=== PATIENT | female | born 1950 | race African-American/Black ===

== ENCOUNTER 2017-05-21 10:13 | Emergency (ER) | payer MEDICARE, OTHER ==
[~2017-05-21 10:13] MED LIST: 1-ME1LIQ PO; BACT800T5 PO; HYDR-2768 PO; LISI-360 PO; PYRI200T4 PO
[2017-05-21 10:16] VITALS: BP 141/99; PULSE 97; RESP 18; TEMP 98.3; O2SAT 98
[2017-05-21] MEDS ORDERED: HYDR25TA5 PO (10:34)
[2017-05-21] MEDS ORDERED: LISI10TA3 PO (10:34)
[2017-05-21] MEDS ORDERED: ASPI81TA81 (10:34)
--- NOTE | 2017-05-21 10:39 | PD ---
HPI Chief Complaint: Fall Time Seen by Provider: 10:39 Travel History International Travel<30 days: No Contact w/Intl Traveler<30days: No Traveled to known affect area: No History of Present Illness HPI 66-year-old female presents to the emergency Department with complaint of right fourth digit finger pain after falling from a chair that slipped out from underneath her while she was cleaning cabinets this morning. She reports hitting the back of her head and denies loss of consciousness. Denies headache or pain to the back of the head at this time. Denies neck pain or back pain. Denies chest pain, shortness of breath, abdominal pain, nausea, vomiting. Denies confusion, disorientation, change in mentation. Denies focal deficits or weakness. Denies slurred speech. Denies paresthesias, loss of sensation, decreased range of motion, decreased strength toxoids. Denies extremity pain. Denies anticoagulants. Reports taking aspirin occasionally. Has not taken any medications or drainage from her symptoms prior to arrival. Allergies to ampicillin. History of hypertension and took her blood pressure medications this morning. Has no other medical complaints. No other modifying factors or associated signs and symptoms. PFSH Past Medical History Arthritis: Yes Anxiety: Yes Depression: Yes Cardiovascular Problems: Yes (HTN) Diminished Hearing: No GERD: Yes Hypertension: Yes Psychiatric: Yes (VISUAL HALLUCINATIONS) Immunizations Current: Yes Menopausal: Yes Tubal Ligation: Yes Past Surgical History Gynecologic Surgery: Yes (HYSTERECTOMY ) Hysterectomy: Yes Social History Alcohol Use: Yes Tobacco Use: Yes (1 1/2 PER WEEK) Substance Use: No Allergies-Medications (Allergen,Severity, Reaction): Coded Allergies: Ampicillin (Verified Allergy, Severe, Edema, 05/25/16) Reported Meds & Prescriptions Reported Meds & Active Scripts Active Reported Lisinopril 10 Mg Tab 70 Mg PO DAILY Aspir-81 (Aspirin) 81 Mg Tabdr Hydrochlorothiazide 25 Mg Tab 25 Mg PO DAILY Physical Exam Narrative GENERAL: Well-nourished, well-developed female patient, in no acute distress SKIN: Warm and dry. HEAD: Atraumatic. Normocephalic. No facial or scalp abrasions or lacerations noted. No palpable lump or tenderness elicited on exam to the posterior scalp. No facial droop noted. Tongue midline. EYES: Pupils equal and round at 3 mm with brisk reaction. No scleral icterus. No injection or drainage. No raccoon eyes. ENT: Mucosa pink and moist. No erythema or exudates. No uvular edema. No uvular , palatal, or tonsillar deviation. Airway patent. Nares without nasal blood, purulent drainage or septal hematoma. No rhinorrhea. EARS: Bilateral pinnae and external canals appear within normal limits. Bilateral tympanic membranes without erythema, dullness, hemotympanum or perforation. No otorrhea. No lopez signs. NECK: Moving freely. Trachea midline. No lymphadenopathy. Active rotation of the neck greater than 45 left and right. No midline point tenderness on palpation of the cervical spine. No obvious deformities. CHEST: No retractions or use of accessory muscles. CARDIOVASCULAR: Regular rate and rhythm. No murmur appreciated. RESPIRATORY: No accessory muscle use. Clear to auscultation. Breath sounds equal bilaterally. GASTROINTESTINAL: Abdomen soft, non-tender, nondistended. Hepatic and splenic margins not palpable. Bowel sounds are active 4 quadrants. MUSCULOSKELETAL: Right fourth finger without erythema, edema, ecchymosis; with tenderness on palpation; with full range of motion and good opposition; No obvious deformity; sensory intact. No obvious deformities. No clubbing. No cyanosis. No edema. BACK: No midline Point tenderness on palpation of the lumbar or thoracic spine. No obvious deformities. Patient sitting up in bed at 90. NEUROLOGICAL: Awake and alert. Oriented 4. No obvious cranial nerve deficits. Motor grossly within normal limits. Normal speech. No midline drift. No ataxia. Moves all extremities. 5/5 strength to all extremities. Sensory intact. PSYCHIATRIC: Appropriate mood and affect; insight and judgment normal. Data Data Last Documented VS Vital Signs Date Time Temp Pulse Resp B/P Pulse Ox O2 Delivery O2 Flow Rate FiO2 05/21/17 10:16 98.3 97 18 141/99 98 Orders Finger ([id number]) (05/21/17 ) Ibuprofen (Motrin) (05/21/17 10:45) MDM Medical Decision Making Medical Screen Exam Complete: Yes Emergency Medical Condition: Yes Medical Record Reviewed: Yes Differential Diagnosis Head injury, finger sprain, fall Narrative Course 56-year-old female with complaint of right fourth finger pain after falling from a chair that slipped out from underneath her. The patient admits to hitting their head, but denies loss of consciousness. Denies anticoagulants. Neuro exam is unremarkable. Denies nausea, vomiting. On physical exam the patient is without raccoon eyes, lopez signs, rhinorrhea, or hemotympanum. I do not suspect open or depressed skull fracture, and the patient has no signs of basilar skull fracture. Malag[place] CT Head Injury Rule suggests a head CT is not necessary for this patient and clears the patient for head injury without imaging. Denies neck pain or back pain. I discussed the patient with my attending physician, Dr. Torres, and he agrees CT head is not necessary at this time. The patient would like her finger x-rayed. I will x-ray the finger per patient request. I offered the patient Tylenol for pain and she declined; patient requested Ibuprofen. 1216: Right fourth finger x-ray with no acute findings. Instructed patient to follow up with primary care provider. Patient verbalizes understanding and agreement with treatment plan. Patient is medically cleared and stable for discharge. Discussed reasons to return to the emergency department. Patient agrees with treatment plan. The patients vital signs are stable and the patient is stable for outpatient follow-up and treatment. Patient discharged home, stable and in no acute distress. Diagnosis Primary Impression: Fall from chair Qualified Code: W07.XXXA - Fall from chair, initial encounter Additional Impressions: Head injury Qualified Code: S09.90XA - Head injury, initial encounter Finger injury Qualified Code: S69.91XA - Finger injury, right, initial encounter Referrals: Primary Care Physician Patient Instructions: Fall Prevention for Older Adults (ED), Finger Sprain (ED) , General Instructions, Head Injury (ED) Additional Instructions: Tylenol or ibuprofen instructed and as needed for pain and inflammation Ice to affected finger as needed for pain and inflammation Follow-up with primary care provider Return to the emergency department immediately with worsening symptoms, particularly as discussed Med/Other Pt SpecificInfo: No Change to Meds, No Meds Exist/No RX given Disposition: 01 DISCHARGE HOME Condition: Stable Isabel Erwin May 21, 2017 10:39
[2017-05-21] MEDS ORDERED: IBUPROFEN 600 MG TAB PO ONE (10:45)
--- NOTE | 2017-05-21 11:20 | RADRPT ---
EXAM DATE/TIME: 05/21/2017 11:04 [facility] COMPARISON: No previous studies available for comparison. INDICATIONS : Pain from fall. MEDICAL HISTORY : None. SURGICAL HISTORY : None. ENCOUNTER: Initial ACUITY: 1 day PAIN SCORE: 4/10 LOCATION: Right proximal fourth digit. FINDINGS: Examination of the fourth digit of the right hand demonstrates no evidence of fracture or dislocation . No radiopaque foreign bodies are seen. The soft tissues are intact. CONCLUSION: Unremarkable examination of the right fourth finger. Shantanu Mcdaniel MD on May 21, 2017 at 11:18 Board Certified Radiologist. This report was verified electronically.
== END 2017-05-21 12:29 | disposition home or self-care (01) ==
LOC: NEPD 10:13
DX: S09.90XA Unspecified injury of head, initial encounter (principal); S69.91XA Unspecified injury of right wrist, hand and finger(s), initial encounter; I10 Essential (primary) hypertension; F41.9 Anxiety disorder, unspecified; F32.9 Major depressive disorder, single episode, unspecified; K21.9 Gastro-esophageal reflux disease without esophagitis; M13.80 Other specified arthritis, unspecified site; W08.XXXA Fall from other furniture, initial encounter; Z79.899 Other long term (current) drug therapy
CPT/HCPCS: 73140; 99283

== ENCOUNTER 2017-07-11 10:27 | Emergency (ER) | payer MEDICARE, OTHER ==
[~2017-07-11 10:27] MED LIST changes: -1-ME1LIQ PO; +ASPI81TA81; -BACT800T5 PO; -HYDR-2768 PO; +HYDR25TA5 PO; -LISI-360 PO; +LISI10TA3 PO; -PYRI200T4 PO
[2017-07-11 10:29] VITALS: BP 216/110; PULSE 80; RESP 17; TEMP 97.8; O2SAT 98
[2017-07-11 11:10] VITALS: BP 195/103
--- NOTE | 2017-07-11 11:18 | PD ---
HPI Chief Complaint: Complaint Time Seen by Provider: 11:09 Travel History International Travel<30 days: No Contact w/Intl Traveler<30days: No Traveled to known affect area: No History of Present Illness HPI 66-year-old female presents to emergency department for evaluation of urinary frequency, urgency, and burning over the last week. She also stepped on a nail 2 days ago and would like a tetanus vaccination. She states she removed it herself. Reports moderate pain on the plantar surface of her right medial foot. Denies fever or chills. Pt has not taken her antihypertensive medication because she is out and is looking to switch PCPs. At this time she has no other symptoms to report. PFSH Past Medical History Arthritis: Yes Anxiety: Yes Depression: Yes Cardiovascular Problems: Yes (HTN) Diminished Hearing: No GERD: Yes Hypertension: Yes Psychiatric: Yes (VISUAL HALLUCINATIONS) Immunizations Current: Yes Menopausal: Yes Tubal Ligation: Yes Past Surgical History Gynecologic Surgery: Yes (HYSTERECTOMY ) Hysterectomy: Yes Social History Alcohol Use: Yes ("SOMETIMES") Tobacco Use: Yes ("SOMETIMES") Substance Use: No Allergies-Medications (Allergen,Severity, Reaction): Coded Allergies: ampicillin (Unverified Allergy, Severe, Edema, 06/27/17) Reported Meds & Prescriptions Reported Meds & Active Scripts Active Lisinopril 40 Mg Tab 40 Mg PO DAILY Cipro (Ciprofloxacin HCl) 500 Mg Tab 500 Mg PO BID 10 Days Reported Lisinopril 10 Mg Tab 70 Mg PO DAILY Aspir-81 (Aspirin) 81 Mg Tabdr Hydrochlorothiazide 25 Mg Tab 25 Mg PO DAILY Review of Systems Except as stated in HPI: all other systems reviewed are Neg Physical Exam Narrative GENERAL: Obese female patient ambulatory and in no acute distress SKIN: Warm and dry. 3mm scabbed lesion on plantar surface of the medial aspect of the right foot. Mild erythema surrounding it. No induration or fluctuation. No drainage. HEAD: Atraumatic. Normocephalic. EYES: Pupils equal and round. No scleral icterus. No injection or drainage. ENT: No nasal bleeding or discharge. Mucous membranes pink and moist. NECK: Trachea midline. No JVD. CARDIOVASCULAR: Regular rate and rhythm. RESPIRATORY: No accessory muscle use. Clear to auscultation. Breath sounds equal bilaterally. GASTROINTESTINAL: Abdomen soft, non-tender, nondistended. Hepatic and splenic margins not palpable. MUSCULOSKELETAL: Extremities without clubbing, cyanosis, or edema. No obvious deformities. NEUROLOGICAL: Awake and alert. No obvious cranial nerve deficits. Motor grossly within normal limits. Five out of 5 muscle strength in the arms and legs. Normal speech. Data Data Last Documented VS Vital Signs Date Time Temp Pulse Resp B/P (MAP) Pulse Ox O2 Delivery O2 Flow Rate FiO2 07/11/17 13:02 87 18 184/90 (121) 97 07/11/17 12:35 Room Air 07/11/17 10:29 97.8 Orders Orders Lisinopril (Prinivil) (07/11/17 11:26) Urinalysis - C+S If Indicated (07/11/17 11:26) Basic Metabolic Panel (Bmp) (07/11/17 11:29) Tetanus/Diphtheria Tox Adult (Tetanus/Di (07/11/17 11:30) Foot, Limited (2vws) (07/11/17 ) Urine Culture (07/11/17 11:29) Labs Laboratory Tests Test 07/11/17 10:34 07/11/17 11:29 Blood Urea Nitrogen 11 MG/DL Creatinine 0.80 MG/DL Random Glucose 90 MG/DL Calcium Level 9.2 MG/DL Sodium Level 141 MEQ/L Potassium Level 3.6 MEQ/L Chloride Level 107 MEQ/L Carbon Dioxide Level 27.5 MEQ/L Anion Gap 7 MEQ/L Estimat Glomerular Filtration Rate 87 ML/MIN Urine Color YELLOW Urine Turbidity HAZY Urine pH 6.5 Urine Specific Kersey 1.011 Urine Protein 30 mg/dL Urine Glucose (UA) NEG mg/dL Urine Ketones NEG mg/dL Urine Occult Blood SMALL Urine Nitrite POS Urine Bilirubin NEG Urine Urobilinogen LESS THAN 2.0 MG/DL Urine Leukocyte Esterase MOD Urine RBC 4 /hpf Urine WBC 29 /hpf Urine Squamous Epithelial Cells 1 /hpf Urine Bacteria MANY /hpf Urine Mucus FEW /lpf Microscopic Urinalysis Comment CULTURE INDICATED MDM Medical Decision Making Medical Screen Exam Complete: Yes Emergency Medical Condition: Yes Medical Record Reviewed: Yes Differential Diagnosis cystitis vs pyelonephritis vs vaginitis cellulitis vs puncture wound vs foreign body Narrative Course 66 year old female presents to the ED for evaluation. Pt appears without distress. She does have a puncture wound on the plantar surface of the left foot that appears to be well healing. She is updated on her tetanus vaccination and will be started on oral antibiotics empirically. Laboratory Tests Test 07/11/17 10:34 07/11/17 11:29 Blood Urea Nitrogen 11 MG/DL Creatinine 0.80 MG/DL Random Glucose 90 MG/DL Calcium Level 9.2 MG/DL Sodium Level 141 MEQ/L Potassium Level 3.6 MEQ/L Chloride Level 107 MEQ/L Carbon Dioxide Level 27.5 MEQ/L Anion Gap 7 MEQ/L Estimat Glomerular Filtration Rate 87 ML/MIN Urine Color YELLOW Urine Turbidity HAZY Urine pH 6.5 Urine Specific Kersey 1.011 Urine Protein 30 mg/dL Urine Glucose (UA) NEG mg/dL Urine Ketones NEG mg/dL Urine Occult Blood SMALL Urine Nitrite POS Urine Bilirubin NEG Urine Urobilinogen LESS THAN 2.0 MG/DL Urine Leukocyte Esterase MOD Urine RBC 4 /hpf Urine WBC 29 /hpf Urine Squamous Epithelial Cells 1 /hpf Urine Bacteria MANY /hpf Urine Mucus FEW /lpf Microscopic Urinalysis Comment CULTURE INDICATED Pt will be started on CIPRO which will also address her UTI. She is counseled on care and dispositioned home at this time. Diagnosis Primary Impression: UTI (urinary tract infection) Qualified Codes: N39.0 - Urinary tract infection, site not specified Additional Impressions: Right foot injury Qualified Codes: S99.921A - Unspecified injury of right foot, initial encounter Puncture wound of skin from metal nail Referrals: [facility] Primary Care Physician Patient Instructions: Chronic Hypertension (ED), General Instructions, Puncture Wound (ED), Urinary Tract Infection in Women (DC) Additional Instructions: It is important that you establish care with a primary care provider Return immediately to the emergency department with any acute worsening of symptoms Med/Other Pt SpecificInfo: Prescription(s) given Scripts Lisinopril (Lisinopril) 40 Mg Tab 40 MG PO DAILY for Blood Pressure Management, #30 TAB 0 Refills Prov: Deyanira Denis 07/11/17 Ciprofloxacin (Cipro) 500 Mg Tab 500 MG PO BID for Infection for 10 Days, TAB 0 Refills Prov: Deyanira Denis 07/11/17 Disposition: 01 DISCHARGE HOME Condition: Stable Deyanira Denis Jul 11, 2017 11:17
[2017-07-11] MEDS ORDERED: LISINOPRIL 20 MG TAB PO STA (11:26)
[2017-07-11] MEDS ORDERED: TETANUS/DIPHTHERIA TOXOID ADULT 0.5 ML VIAL IM ONE (11:30)
[2017-07-11 11:53] LABS: BACTERIA, URINE MANY /hpf; BLOOD, URINE SMALL (NEG); COMMENT (UR) CULTURE INDICATED; CULTURE IF INDICATED CULTURE INDICATED; GLUCOSE,URINE NEG (NEG); KETONE, URINE NEG (NEG); MUCUS URINE FEW /lpf (OCC); NITRITE,URINE POS (NEG); PH, URINE 6.5 (5.0-8.5); SQUAMOUS EPITHELIAL CELL URINE 1 /hpf (0-5); URINE COLOR YELLOW (YELLW/STRAW)
[2017-07-11 11:59] LABS: BICARBONATE 27.5 MEQ/L (21.0-32.0); POTASSIUM 3.6 MEQ/L (3.5-5.1)
--- NOTE | 2017-07-11 12:11 | RADRPT ---
EXAM DATE/TIME: 07/11/2017 11:43 [facility] COMPARISON: FOOT RIGHT COMPLETE ([id number]), September 21, 2015, 10:10. INDICATIONS : Anterior foot pain for a few days with no known injury. MEDICAL HISTORY : None. SURGICAL HISTORY : None. ENCOUNTER: Initial ACUITY: 3 days PAIN SCORE: 4/10 LOCATION: Right anterior foot. FINDINGS: Two view examination of the right foot demonstrates no soft tissue swelling, dislocation, or fracture . The calcaneus is intact. Bony mineralization is normal. Calcaneal spur at the insertion of planta r aponeurosis. CONCLUSION: Calcaneal spur. Otherwise negative Harjeet Shields MD on July 11, 2017 at 12:08 Board Certified Radiologist. This report was verified electronically.
[2017-07-11 12:35] VITALS: BP 193/93; PULSE 87; RESP 20; O2SAT 97
[2017-07-11] MEDS ORDERED: CIPR-9 PO (12:54)
[2017-07-11] MEDS ORDERED: LISI40TA PO (12:54)
[2017-07-11 13:02] VITALS: BP 184/90
== END 2017-07-11 13:14 | disposition home or self-care (01) ==
LOC: NEPD 10:27
DX: N39.0 Urinary tract infection, site not specified (principal); B96.20 Unspecified Escherichia coli [E. coli] as the cause of diseases classified elsewhere; S91.332A Puncture wound without foreign body, left foot, initial encounter; M77.31 Calcaneal spur, right foot; M13.80 Other specified arthritis, unspecified site; I10 Essential (primary) hypertension; K21.9 Gastro-esophageal reflux disease without esophagitis; W22.8XXA Striking against or struck by other objects, initial encounter; Z23 Encounter for immunization
CPT/HCPCS: 73620; 80048; 81001; 87077; 87086; 87186; 90714; 96372

== ENCOUNTER 2017-07-18 03:16 | Observation (INO) | payer MEDICARE, OTHER ==
[~2017-07-18] VITALS: Ht 167.6 cm; Wt 110.0 kg
[2017-07-18] VITALS (8 sets, daily range): BP systolic 84–158; BP diastolic 52–81; PULSE 68–85; RESP 16–20; TEMP 97.9–98.1; O2SAT 94–98
[~2017-07-18 03:16] MED LIST changes: +CIPR-9 PO; +LISI40TA PO
[2017-07-18] MEDS ORDERED: IOHEXOL 350 MG/ML 10 ML VIAL (for RAD DIAG) IVCONTRAST ONE (03:17)
[2017-07-18] MEDS ORDERED: ONDANSETRON HCL 4 MG/2 ML VIAL IV PUSH ONE (04:30)
[2017-07-18] MEDS ORDERED: SODIUM CHLORID 0.9% 500 ML INJ 500 ML IV ONE (04:30)
[2017-07-18 04:32] LABS: AUTOMATED NEUTROPHIL # 6.3 TH/MM3 (1.8-7.7); BASOPHIL % 0.5 % (0.0-2.0); EOSINOPHIL # 0.2 TH/MM3 (0-0.4); EOSINOPHIL % 2.1 % (0.0-4.0); HEMATOCRIT 40.8 % (35.0-46.0); HEMO FLAGS DIFF FINAL; LYMPH % 11.1 % (9.0-44.0); LYMPHOCYTE # 0.9 TH/MM3 (1.0-4.8); MEAN CELL VOLUME 83.5 FL (80.0-100.0); MEAN CORPUSCULAR HEMOGLOBIN 28.1 PG (27.0-34.0); MEAN CORPUSCULAR HGB CONC 33.6 % (32.0-36.0); MONO % 5.1 % (0.0-8.0); NEUT % 81.2 % (16.0-70.0); PLATELET COUNT 219 TH/MM3 (150-450); RED BLOOD COUNT 4.88 MIL/MM3 (4.00-5.30); RED CELL DISTRIBUTION WIDTH 15.5 % (11.6-17.2); WHITE BLOOD COUNT 7.7 TH/MM3 (4.0-11.0)
[2017-07-18 04:39] LABS: APTT (PATIENT) 27.3 SEC (24.3-30.1); INTERNATIONAL NORMALIZED RATIO 0.9 RATIO; PROTHROMBIN TIME - PATIENT 10.4 SEC (9.8-11.6)
--- NOTE | 2017-07-18 04:50 | PD ---
HPI Chief Complaint: Abdominal Pain Time Seen by Provider: 03:46 Travel History International Travel<30 days: No Contact w/Intl Traveler<30days: No Traveled to known affect area: No History of Present Illness HPI The patient is a 67 year old female who presents to the [facility] emergency department with a history of abdominal pain that she reports began around 10 PM tonight. She reports the pain is coming and going and then the center of her abdomen. She reports that the pain is unlike anything she's ever had previously. She reports that the ureter the pain as a cramping/labor sensation. The patient reports that the only surgeries that she's had on her abdomen previously are hysterectomy and a bilateral tubal ligation. She reports that she's had nausea and vomiting 3 prior to arrival. She denies having any diarrhea. Her last bowel movement was yesterday. She denies having any known fevers or chills. She denies having any dysuria, urinary frequency, urinary urgency associated with this. Otherwise on review of systems, she denies any cough, congestion, neck pain, chest pain, shortness of breath, or neurologic symptoms. [facility] Past Medical History Narrative Medical The patient's past medical history is significant for recently being diagnosed with a urinary tract infection, started on antibiotic of Cipro on July 11, however she reports that she was called and told to switch the antibiotic. She started the new antibiotic 2 days ago. The patient has a history of hypertension, anxiety disorder, depression, acid reflux, arthritis, history of psychiatric disorder. Arthritis: Yes Anxiety: Yes Depression: Yes Cardiovascular Problems: Yes (HTN) Diminished Hearing: No GERD: Yes Hypertension: Yes Psychiatric: Yes (VISUAL HALLUCINATIONS) Immunizations Current: Yes Tetanus Vaccination: < 5 Years Influenza Vaccination: Yes Menopausal: Yes Tubal Ligation: Yes Past Surgical History Narrative Surgical The patient's past surgical history is significant for bilateral tubal ligation , hysterectomy. Gynecologic Surgery: Yes (HYSTERECTOMY ) Hysterectomy: Yes Social History Alcohol Use: Yes ("SOMETIMES") Tobacco Use: Yes ("SOMETIMES") Substance Use: No Allergies-Medications (Allergen,Severity, Reaction): Coded Allergies: ampicillin (Unverified Allergy, Severe, Edema, 07/18/17) Reported Meds & Prescriptions Reported Meds & Active Scripts Active Cipro (Ciprofloxacin HCl) 500 Mg Tab 500 Mg PO BID 10 Days Reported Lisinopril 10 Mg Tab 70 Mg PO DAILY Aspir-81 (Aspirin) 81 Mg Tabdr Hydrochlorothiazide 25 Mg Tab 25 Mg PO DAILY Review of Systems Except as stated in HPI: all other systems reviewed are Neg General / Constitutional: No: Fever Eyes: No: Visual changes HENT: No: Headaches Cardiovascular: No: Chest Pain or Discomfort Respiratory: No: Shortness of Breath Gastrointestinal: Positive: Nausea, Vomiting, Abdominal Pain, No: Hematemesis, Hematochezia, Constipation, Changes in Bowel Habits, Indigestion, Loss of Appetite Genitourinary: No: Dysuria Musculoskeletal: No: Pain Skin: No Rash Neurologic: No: Weakness, Focal Abnormalities, Change in Mentation, Slurred Speech, Sensory Disturbance Psychiatric: No: Depression Endocrine: No: Polydipsia Hematologic/Lymphatic: No: Easy Bruising Physical Exam Narrative General: The patient is a well-developed well-nourished female who is uncomfortable appearing on examination, intermittently writhing around the bed and moaning. The patient's initial blood pressure was a systolic of 106, however patient's blood pressure quickly dropped down to 84/52. Given the patient's recent history of UTI there was a concern for sepsis. Head and Neck exam: Head is normocephalic atraumatic. Eyes: EOMI, pupils are equal round and reactive to light. Nose: Midline septum with pink mucous membranes Mouth: Dentition unremarkable. Moist mucus membranes. Posterior oropharynx is not erythematous. No tonsillar hypertrophy. Uvula midline. Airway patent. Neck: No palpable lymphadenopathy. No nuchal rigidity. No thyromegaly. Cardiovascular: Regular rate and rhythm without murmurs, gallops, or rubs. Lungs: Clear to auscultation bilaterally. No wheezes, rhonchi, or rales. Abdomen: Soft, with reported tenderness on deep palpation that is periumbilical, no hernia is palpated, no other tenderness on palpation of the other quadrants. No guarding, rebound, or rigidity. Normal bowel sounds are audible. No tenderness on palpation of McBurney's point. Negative Caba's sign. Extremities: No clubbing, cyanosis, or edema. 2+ pulses in all 4 extremities. No calf tenderness on palpation. Back: No costovertebral angle tenderness to palpation. Neurologic Exam: Grossly nonfocal. Skin Exam: No rash noted. Intact skin that is warm and dry. Data Data Last Documented VS Vital Signs Date Time Temp Pulse Resp B/P (MAP) Pulse Ox O2 Delivery O2 Flow Rate FiO2 07/18/17 06:03 18 07/18/17 05:27 81 117/63 (81) 97 Nasal Cannula 2.00 07/18/17 03:40 97.9 Orders Orders Electrocardiogram (07/18/17 04:05) Complete Blood Count With Diff (07/18/17 04:05) Comprehensive Metabolic Panel (07/18/17 04:05) Creatine Kinase (Cpk) (07/18/17 04:05) Ckmb (Isoenzyme) Profile (07/18/17 04:05) Troponin I (07/18/17 04:05) Prothrombin Time / Inr (Pt) (07/18/17 04:05) Act Partial Throm Time (Ptt) (07/18/17 04:05) C-Reactive Protein (Crp) (07/18/17 04:05) Lipase (07/18/17 04:05) Urinalysis - C+S If Indicated (07/18/17 04:05) Magnesium (Mg) (07/18/17 04:05) Chest, Single Ap (07/18/17 04:05) Iv Access Insert/Monitor (07/18/17 04:05) Ecg Monitoring (07/18/17 04:05) Oximetry (07/18/17 04:05) Lactic Acid (07/18/17 04:05) Sodium Chlorid 0.9% 500 Ml Inj (Ns 500 M (07/18/17 04:30) Ondansetron Inj (Zofran Inj) (07/18/17 04:30) Blood Culture (07/18/17 04:41) Ketorolac Inj (Toradol Inj) (07/18/17 05:00) Ct Abd/Pel W Iv Contrast(Rout) (07/18/17 04:50) Cath For Specimen (07/18/17 04:50) CKMB (07/18/17 04:15) CKMB% (07/18/17 04:15) Iohexol 350 Inj (Omnipaque 350 Inj) (07/18/17 03:17) Sodium Chlor 0.9% 1000 Ml Inj (Ns 1000 M (07/18/17 05:45) Vancomycin Inj (Vancomycin Inj) (07/18/17 05:43) Aztreonam Inj (Azactam Inj) (07/18/17 05:43) Metronidazole 500 Mg Inj (Flagyl 500 Mg (07/18/17 05:43) Place In Observation (07/18/17 ) Vital Signs (Adult) Q4H (07/18/17 06:14) Activity Oob Ad Ivonne (07/18/17 06:14) Warehouse Shift Supervisor / Telemetry .CONTINUOUS (07/18/17 06:14) Intake + Output KATHY.QSHIFT (07/18/17 06:14) Diet Heart Healthy (07/18/17 Breakfast) Sodium Chlor 0.9% 1000 Ml Inj (Ns 1000 M (07/18/17 06:14) Sodium Chloride 0.9% Flush (Ns Flush) (07/18/17 06:15) Sodium Chloride 0.9% Flush (Ns Flush) (07/18/17 09:00) Basic Metabolic Panel (Bmp) (07/19/17 06:00) Complete Blood Count With Diff (07/19/17 06:00) Pt Request For Service (07/18/17 06:14) Heparin Inj (Heparin Inj) (07/18/17 08:00) Scd Bilateral/Knee High KATHY.BID (07/18/17 06:14) Naloxone Inj (Narcan Inj) (07/18/17 06:15) Docusate Sodium-Senna (Kylee-Colace) (07/18/17 09:00) Magnesium Hydroxide Liq (Milk Of Magnesi (07/18/17 06:15) Sennosides (Senokot) (07/18/17 06:15) Bisacodyl Supp (Dulcolax Supp) (07/18/17 06:15) Lactulose Liq (Lactulose Liq) (07/18/17 06:15) Vancomycin Consult Pharmacy (Vancomycin (07/18/17 06:30) Vancomycin Inj (Vancomycin Inj) (07/18/17 06:30) Admit Order (Ed Use Only) (07/18/17 06:16) Labs Laboratory Tests Test 07/18/17 04:15 07/18/17 05:45 White Blood Count 7.7 TH/MM3 Red Blood Count 4.88 MIL/MM3 Hemoglobin 13.7 GM/DL Hematocrit 40.8 % Mean Corpuscular Volume 83.5 FL Mean Corpuscular Hemoglobin 28.1 PG Mean Corpuscular Hemoglobin Concent 33.6 % Red Cell Distribution Width 15.5 % Platelet Count 219 TH/MM3 Mean Platelet Volume 9.2 FL Neutrophils (%) (Auto) 81.2 % Lymphocytes (%) (Auto) 11.1 % Monocytes (%) (Auto) 5.1 % Eosinophils (%) (Auto) 2.1 % Basophils (%) (Auto) 0.5 % Neutrophils # (Auto) 6.3 TH/MM3 Lymphocytes # (Auto) 0.9 TH/MM3 Monocytes # (Auto) 0.4 TH/MM3 Eosinophils # (Auto) 0.2 TH/MM3 Basophils # (Auto) 0.0 TH/MM3 CBC Comment DIFF FINAL Differential Comment Prothrombin Time 10.4 SEC Prothromb Time International Ratio 0.9 RATIO Activated Partial Thromboplast Time 27.3 SEC Blood Urea Nitrogen 20 MG/DL Creatinine 1.13 MG/DL Random Glucose 156 MG/DL Total Protein 8.1 GM/DL Albumin 3.6 GM/DL Calcium Level 9.0 MG/DL Magnesium Level 1.8 MG/DL Alkaline Phosphatase 61 U/L Aspartate Amino Transf (AST/SGOT) 9 U/L Alanine Aminotransferase (ALT/SGPT) 20 U/L Total Bilirubin 0.6 MG/DL Sodium Level 136 MEQ/L Potassium Level 3.3 MEQ/L Chloride Level 97 MEQ/L Carbon Dioxide Level 32.5 MEQ/L Anion Gap 7 MEQ/L Estimat Glomerular Filtration Rate 58 ML/MIN Lactic Acid Level 1.4 mmol/L Total Creatine Kinase 164 U/L Creatine Kinase MB 0.8 NG/ML Troponin I LESS THAN 0.02 NG/ML C-Reactive Protein 6.60 MG/DL Lipase 141 U/L Urine Color YELLOW Urine Turbidity HAZY Urine pH 6.5 Urine Specific [place] 1.043 Urine Protein TRACE mg/dL Urine Glucose (UA) NEG mg/dL Urine Ketones NEG mg/dL Urine Occult Blood NEG Urine Nitrite NEG Urine Bilirubin NEG Urine Urobilinogen LESS THAN 2.0 MG/DL Urine Leukocyte Esterase NEG Urine RBC 3 /hpf Urine WBC 3 /hpf Urine Squamous Epithelial Cells 4 /hpf Urine Bacteria RARE /hpf Urine Mucus FEW /lpf Microscopic Urinalysis Comment CULT NOT INDICATED MDM Medical Decision Making Medical Screen Exam Complete: Yes Emergency Medical Condition: Yes Medical Record Reviewed: Yes Interpretation(s) Last Impressions Abdomen/Pelvis CT 07/18/17449 Signed Impressions: Service Date/Time: Tuesday, July 18, 2017 05:05 - CONCLUSION: 1. Trace ascites with free fluid along the inferior margins of the liver and spleen extending to the pelvis. 2. Nonspecific appearance of nondistended small bowel loops particularly in the left abdomen with questionable small bowel wall thickening and mesenteric stranding. The mesenteric changes may simply reflect mesenteric edema in this patient with ascites. Differential considerations include normal variant versus enteritis versus less likely inflammatory bowel disease. CT enterography may be performed for further evaluation if there is continued strong clinical concern. 3. Normal appendix. 4. Mild sigmoid diverticulosis. Trey Smith MD Chest X-Ray 07/18/175 Signed Impressions: Service Date/Time: Tuesday, July 18, 2017 04:56 - CONCLUSION: 1. No acute cardiopulmonary disease. Trey Smith MD Differential Diagnosis Sepsis related to a urinary tract infection, versus dehydration, versus is very perforated peptic ulcer, versus perforated bowel Narrative Course During the course of the patients emergency department visit, the patients history, examination, and differential diagnosis were reviewed with the patient. The patient had IV access obtained and blood work sent for analysis. The patient was placed on a secured entrance monitor with oximetry and blood pressure monitoring. Blood cultures 2 were done, lactic acid was sent. A CT scan of the abdomen and pelvis was ordered. The patient was initially provided normal saline a 500 mL bolus 1, Zofran 4 mg IV. The patient was started on broad-spectrum antibiotics to include Azactam, vancomycin, and Flagyl. The patients laboratory studies were reviewed and remarkable for a white count of 7.7, hemoglobin 13.7, platelets 219, neutrophils 81.2. CMP is remarkable for potassium of 3.3, CO2 32.5, BUN 20, creatinine 1.13, glucose 156, AST 9, CPK 164, troponin I less than 0.02, C-reactive protein is 6.6, lipase 141, lactic acid 1.4. PT PTT within normal limits. Urinalysis shows concentrated urine, rare bacteria. Radiology studies were reviewed and remarkable for a chest x-ray that shows no acute cardiopulmonary disease, CT scan of the abdomen and pelvis shows trace ascites with free fluid along the inferior margins of the liver and spleen extending to the pelvis, nonspecific appearance of nondistended small bowel loops particularly in the left abdomen with questionable small bowel wall thickening and mesenteric stranding. The mesenteric changes may simply be related to mesenteric edema and the patient with ascites. Differential diagnosis includes normal variant, versus enteritis, versus inflammatory bowel disease. The patient has a normal-appearing appendix, mild sigmoid diverticulosis. Given the patient's episode of hypotension and severe abdominal pain the patient will be admitted to the hospital for continued IV antibiotics, IV fluid bolus. If the patient does develop diarrhea, C. difficile toxin will be sent for analysis due to the patient being on antibiotic as this should be ruled out. The patients results were discussed with the patient, including the plan of care. I explained that further testing and/ or monitoring is indicated based on the patients history, examination, and/ or laboratory findings. Therefore, I recommended admission for additional evaluation. The patient expressed understanding and was agreeable with this plan. The patient was admitted to the hospital in stable condition and sent to a [facility]. Sepsis Criteria Severe Sepsis (+one): Hypotension Physician Communication Physician Communication The patient's case was discussed with Dr. Cohen who did agree to admit the patient for further evaluation and treatment at this time. Diagnosis Primary Impression: Abdominal pain Qualified Codes: R10.9 - Unspecified abdominal pain Additional Impressions: Hypotension, unspecified Qualified Codes: I95.9 - Hypotension, unspecified Urinary tract infection Qualified Codes: N39.0 - Urinary tract infection, site not specified Admitting Information Admitting Physician Requests: Yocasta Borrego MD Jul 18, 2017 04:50
[2017-07-18 04:52] LABS: ANION GAP 7 MEQ/L (5-15); AST (GOT) 9 U/L (15-37); BICARBONATE 32.5 MEQ/L (21.0-32.0); BLOOD UREA NITROGEN 20 MG/DL (7-18); CHLORIDE 97 MEQ/L (98-107); GLOMERULAR FILTRATION RATE 58 ML/MIN (>89); MAGNESIUM 1.8 MG/DL (1.5-2.5); POTASSIUM 3.3 MEQ/L (3.5-5.1); SODIUM (NA) 136 MEQ/L (136-145)
[2017-07-18 04:53] LABS: ALT (GPT) 20 U/L (10-53)
[2017-07-18 04:55] LABS: ALKALINE PHOSPHATASE 61 U/L (45-117); CREATINE KINASE 164 U/L (26-192); TOTAL BILIRUBIN ADULT 0.6 MG/DL (0.2-1.0)
[2017-07-18] MEDS ORDERED: KETOROLAC TROMETHAMINE 30 MG/ML (IVP) VIAL IV PUSH ONE (05:00)
--- NOTE | 2017-07-18 05:05 | RADRPT ---
EXAM DATE/TIME: 07/18/2017 04:56 [facility] COMPARISON: No previous studies available for comparison. INDICATIONS : Chest pain. MEDICAL HISTORY : None. SURGICAL HISTORY : None. ENCOUNTER: Initial ACUITY: 1 day PAIN SCORE: 7/10 LOCATION: Bilateral chest FINDINGS: A single view of the chest demonstrates the lungs to be symmetrically aerated without evidence of mas s, infiltrate or effusion. The cardiomediastinal contours are unremarkable. Osseous structures are intact. CONCLUSION: 1. No acute cardiopulmonary disease. Trey Smith MD on July 18, 2017 at 5:03 Board Certified Radiologist. This report was verified electronically.
[2017-07-18 05:08] LABS: CKMB 0.8 NG/ML (0.5-3.6)
--- NOTE | 2017-07-18 05:29 | RADRPT ---
EXAM DATE/TIME: 07/18/2017 05:05 [facility] COMPARISON: No previous studies available for comparison. INDICATIONS : Abdominal pain. IV CONTRAST: 95 cc Omnipaque 350 (iohexol) IV ORAL CONTRAST: No oral contrast ingested. RADIATION DOSE: 26.74 CTDIvol (mGy) ; Patient body habitus MEDICAL HISTORY : Hypertension. Gastroesophageal reflux disease. SURGICAL HISTORY : Hysterectomy. Tubal ligation. ENCOUNTER: Initial ACUITY: 1 day PAIN SCALE: 4/10 LOCATION: Bilateral abdomen TECHNIQUE: Volumetric scanning of the abdomen and pelvis was performed. Using automated exposure control and ad justment of the mA and/or kV according to patient size, radiation dose was kept as low as reasonably achievable to obtain optimal diagnostic quality images. DICOM format image data is available electro nically for review and comparison. FINDINGS: LOWER LUNGS: Mild groundglass opacities at the lung bases likely reflecting atelectasis. Small cyst in the right l dustin base. LIVER: Subcentimeter hypodensity in the left lobe liver which is too small to fully characterize. Liver is o therwise unremarkable without evidence for intrapelvic ductal dilatation or significant volume loss. No calcified gallstones. There is a small amount of ascites along the inferior margin of the liver a nd spleen and in the deep pelvis. SPLEEN: Normal size without lesion. PANCREAS: Within normal limits. KIDNEYS: Normal in size and shape. There is no mass, stone or hydronephrosis. ADRENAL GLANDS: Within normal limits. VASCULAR: There is no aortic aneurysm. BOWEL/MESENTERY: There is incomplete distention of the bowel due to lack oral contrast. However, there is some apparen t small bowel wall thickening and adjacent stranding which may reflect mesenteric edema in this patie nt with ascites. There is no evidence for obstruction. Appendix is visualized and in the upper limits of normal for size without significant periappendiceal inflammatory change. Mild sigmoid diverticulo sis. Bowel otherwise appears unremarkable. ABDOMINAL WALL: Within normal limits. RETROPERITONEUM: There is no lymphadenopathy. BLADDER: Bladder is partially decompressed which accentuates the bladder wall. REPRODUCTIVE: Uterus is surgically absent. INGUINAL: There is no lymphadenopathy or hernia. MUSCULOSKELETAL: No abnormal lytic or blastic bony lesions. CONCLUSION: 1. Trace ascites with free fluid along the inferior margins of the liver and spleen extending to the pelvis. 2. Nonspecific appearance of nondistended small bowel loops particularly in the left abdomen with que stionable small bowel wall thickening and mesenteric stranding. The mesenteric changes may simply ref lect mesenteric edema in this patient with ascites. Differential considerations include normal varian t versus enteritis versus less likely inflammatory bowel disease. CT enterography may be performed fo r further evaluation if there is continued strong clinical concern. 3. Normal appendix. 4. Mild sigmoid diverticulosis. Trey Smith MD on July 18, 2017 at 5:18 Board Certified Radiologist. This report was verified electronically.
[2017-07-18] MEDS ORDERED: AZTREONAM INJ 2,000 MG in SODIUM CHLORIDE 0.9% INJ 100 ML IV STA (05:43)
[2017-07-18] MEDS ORDERED: metroNIDAZOLE 500 MG INJ 100 ML IV STA (05:43)
[2017-07-18] MEDS ORDERED: VANCOMYCIN INJ 1,000 MG in SODIUM CHLOR 0.9% 250 ML INJ 250 ML IV STA (05:43)
[2017-07-18] MEDS ORDERED: SODIUM CHLOR 0.9% 1000 ML INJ 1,000 ML IV ONE ×2 (05:45→10:45)
[2017-07-18] MEDS ORDERED: SODIUM CHLOR 0.9% 1000 ML INJ 1,000 ML IV SCH (06:14)
[2017-07-18] MEDS ORDERED: LACTULOSE SYRUP 20 GM/30 ML CUP PO PRN (06:15)
[2017-07-18] MEDS ORDERED: NALOXONE HCL 0.4 MG/ML AMP IV PRN (06:15)
[2017-07-18] MEDS ORDERED: BISACODYL 10 MG SUPP RECTAL PRN (06:15)
[2017-07-18] MEDS ORDERED: SENNOSIDES 8.6 MG TAB PO PRN (06:15)
[2017-07-18] MEDS ORDERED: MAGNESIUM HYDROXIDE SUSP 30 ML CUP PO PRN (06:15)
[2017-07-18] MEDS ORDERED: SODIUM CHLORIDE 0.9% FLUSH 10 ML FLUSH IV FLUSH PRN (06:15)
[2017-07-18 06:24] LABS: BACTERIA, URINE RARE /hpf; BLOOD, URINE NEG (NEG); COMMENT (UR) CULT NOT INDICATED; CULTURE IF INDICATED CULT NOT INDICATED; GLUCOSE,URINE NEG (NEG); KETONE, URINE NEG (NEG); MUCUS URINE FEW /lpf (OCC); NITRITE,URINE NEG (NEG); PH, URINE 6.5 (5.0-8.5); SQUAMOUS EPITHELIAL CELL URINE 4 /hpf (0-5); URINE COLOR YELLOW (YELLW/STRAW)
[2017-07-18] MEDS ORDERED: Vancomycin Consult Pharmacy 1 EA OTHER SCH (06:30)
[2017-07-18] MEDS ORDERED: HEPARIN SODIUM - SQ 10,000 UNITS/ML VIAL SQ SCH (08:00)
[2017-07-18] MEDS ORDERED: DOCUSATE SODIUM 50 MG/SENNA 8.6 MG TAB PO SCH (09:00)
[2017-07-18] MEDS ORDERED: SODIUM CHLORIDE 0.9% FLUSH 10 ML FLUSH IV FLUSH SCH (09:00)
--- NOTE | 2017-07-18 10:22 | HHI.HP ---
HPI Service [facility] Primary Care Physician Unknown Admission Diagnosis Abdominal pain, uti, low blood pressure Diagnoses: Chief Complaint: Abdominal pain and dizziness. Travel History International Travel<30 Days: No Contact w/Intl Traveler <30 Da: No Traveled to Known Affected Are: No History of Present Illness Written by Mich Up PA-C, acting as scribe for Dr. Emeka Wagner on 07/18/17 at 10:23. Mrs. Del Cid is 66 years old, with history of hypertension, anxiety/depression, acid reflux, visual hallucinations, and fibroid tumor. Ms. Del Cid reported that she developed abdominal pain and dizziness on Monday evening (07/17/2017) and as the night went on she developed emesis. Patient stated she came by ambulance [place] [facility] [place] of her condition. Upon interview, patient stated that she had eaten cabbage and ox tails earlier in the day. Patient stated that some of the food may have "been bad". She denied anyone else in the family getting ill from the meal. She reported that her blood pressure was elevated last night and "it made me dizzy" and that this is what prompted her to come to the emergency department. She reported getting nauseated with mild abdominal pain and vomiting her food up. Patient denies fever, chest pain, diarrhea, bloody urine or stool. She did report having a urinary tract infection that, per medical records was originally diagnosed on and treated with Cipro. Patient had her antibiotic changed 2 days ago to unknown agent. She denied dysuria he had endorsed frequent urination. Labs obtained in the emergency department indicated an absence of a urinary tract infection at this time. In discussion with the patient about the need to stay in the hospital she stated that she had matters to attend to at home and wanted to leave even if this meant leaving AGAINST MEDICAL ADVICE. Patient was willing to undergo treatment. At time of interview, patient was noted to have a empty breakfast tray in front of her. She noted she had eaten scrambled eggs and rank milk and orange juice without return of abdominal pain, nausea or vomiting. Review of Systems Except as stated in HPI: all other systems reviewed are Neg Past Family Social History Past Medical History hypertension, anxiety/depression, acid reflux, visual hallucinations, fibroid tumor. Past Surgical History Hysterectomy Bilateral tubal ligation "in my late 20's". Reported Medications Reported Meds & Active Scripts Active Cipro (Ciprofloxacin HCl) 500 Mg Tab 500 Mg PO BID 10 Days Reported Lisinopril 10 Mg Tab 70 Mg PO DAILY Aspir-81 (Aspirin) 81 Mg Tabdr Hydrochlorothiazide 25 Mg Tab 25 Mg PO DAILY Allergies: Coded Allergies: ampicillin (Unverified Allergy, Severe, Edema, 07/18/17) Active Ordered Medications Current Medications Medications (Trade) Dose Ordered Sig/Ike Route Start Time Stop Time Status Last Admin Sodium Chloride 1,000 ml @ 100 mls/hr Q10H IV 07/18/17 06:14 07/18/17 07:10 (NS Flush) 2 ml UNSCH PRN IV FLUSH 07/18/17 06:15 (NS Flush) 2 ml BID IV FLUSH 07/18/17 09:00 (Heparin Inj) 5,000 units Q8H SQ 07/18/17 08:00 07/18/17 07:11 (Narcan Inj) 0.4 mg UNSCH PRN IV 07/18/17 06:15 (Kylee-Colace) 1 tab BID PO 07/18/17 09:00 07/18/17 07:11 (Milk Of Magnesia Liq) 30 ml Q12H PRN PO 07/18/17 06:15 (Senokot) 17.2 mg Q12H PRN PO 07/18/17 06:15 (Dulcolax Supp) 10 mg DAILY PRN RECTAL 07/18/17 06:15 (Lactulose Liq) 30 ml DAILY PRN PO 07/18/17 06:15 Family History Pt endorsed a brother from an unknown cancer. Pt endorsed family history of kidney disease. Social History Pt denied illicit/recreational crug use. She endorsed social smoking, amount and length of time was not specified; she noted a greater than 10 year smoking history. Pt endorsed rare social use of alcohol. Pt is x 5 years. 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 Physical Exam Vital Signs Vital Signs Date Time Temp Pulse Resp B/P (MAP) Pulse Ox O2 Delivery O2 Flow Rate FiO2 07/18/17 09:12 97.9 69 18 108/69 (82) 98 Nasal Cannula 2.00 07/18/17 07:10 17 07/18/17 07:10 18 (77) 98 Nasal Cannula 2.00 07/18/17 07:10 98.0 68 18 116/58 (77) 98 Nasal Cannula 2.00 07/18/17 06:03 18 07/18/17 05:27 81 18 117/63 (81) 97 Nasal Cannula 2.00 07/18/17 04:20 73 16 84/52 (63) 97 Nasal Cannula 2.00 07/18/17 03:45 18 07/18/17 03:40 97.9 85 18 105/56 (72) 96 Physical Exam GENERAL: Patient encountered in laying bed. SKIN: Warm and dry. HEAD: Normocephalic. EYES: No scleral icterus. No injection or drainage. NECK: Supple, trachea midline. No lymphadenopathy. CARDIOVASCULAR: Regular rate and rhythm without murmurs, gallops, or rubs. RESPIRATORY: Breath sounds equal bilaterally. No wheezes rhonchi or crackles. No accessory muscle use. GASTROINTESTINAL: Abdomen soft and nondistended. Mild Right upper quadrant pain elicited upon palpation. MUSCULOSKELETAL: No cyanosis, or edema. PSYCHIATRIC: Appropriate mood and affect. Patient was pleasant and cooperative. Speech was clear and fluent. As noted above, pt was educated about the need to stay and undergo further evaluation for the issues that led her to coming [place] [facility] Pt was steadfast in her desire to leave as soon as possible even if treatment was incomplete. Pt noted she would return to hospital after she addressed her personal matters. Laboratory Laboratory Tests Test 07/18/17 04:15 07/18/17 05:45 White Blood Count 7.7 Red Blood Count 4.88 Hemoglobin 13.7 Hematocrit 40.8 Mean Corpuscular Volume 83.5 Mean Corpuscular Hemoglobin 28.1 Mean Corpuscular Hemoglobin Concent 33.6 Red Cell Distribution Width 15.5 Platelet Count 219 Mean Platelet Volume 9.2 Neutrophils (%) (Auto) 81.2 Lymphocytes (%) (Auto) 11.1 Monocytes (%) (Auto) 5.1 Eosinophils (%) (Auto) 2.1 Basophils (%) (Auto) 0.5 Neutrophils # (Auto) 6.3 Lymphocytes # (Auto) 0.9 Monocytes # (Auto) 0.4 Eosinophils # (Auto) 0.2 Basophils # (Auto) 0.0 CBC Comment DIFF FINAL Differential Comment Prothrombin Time 10.4 Prothromb Time International Ratio 0.9 Activated Partial Thromboplast Time 27.3 Blood Urea Nitrogen 20 Creatinine 1.13 Random Glucose 156 Total Protein 8.1 Albumin 3.6 Calcium Level 9.0 Magnesium Level 1.8 Alkaline Phosphatase 61 Aspartate Amino Transf (AST/SGOT) 9 Alanine Aminotransferase (ALT/SGPT) 20 Total Bilirubin 0.6 Sodium Level 136 Potassium Level 3.3 Chloride Level 97 Carbon Dioxide Level 32.5 Anion Gap 7 Estimat Glomerular Filtration Rate 58 Lactic Acid Level 1.4 Total Creatine Kinase 164 Creatine Kinase MB 0.8 Troponin I LESS THAN 0.02 C-Reactive Protein 6.60 Lipase 141 Urine Color YELLOW Urine Turbidity HAZY Urine pH 6.5 Urine Specific [place] 1.043 Urine Protein TRACE Urine Glucose (UA) NEG Urine Ketones NEG Urine Occult Blood NEG Urine Nitrite NEG Urine Bilirubin NEG Urine Urobilinogen LESS THAN 2.0 Urine Leukocyte Esterase NEG Urine RBC 3 Urine WBC 3 Urine Squamous Epithelial Cells 4 Urine Bacteria RARE Urine Mucus FEW Microscopic Urinalysis Comment CULT NOT INDICATED Date/Time Source Procedure Growth Status 07/18/17 05:25 Blood Peripheral Aerobic Blood Culture Pending Received 07/18/17 05:25 Blood Peripheral Anaerobic Blood Culture Pending Received Result Diagram: 07/18/1741407/[id number]/17414 Imaging Last Impressions Abdomen/Pelvis CT 07/18/17449 Signed Impressions: Service Date/Time: Tuesday, July 18, 2017 05:05 - CONCLUSION: 1. Trace ascites with free fluid along the inferior margins of the liver and spleen extending to the pelvis. 2. Nonspecific appearance of nondistended small bowel loops particularly in the left abdomen with questionable small bowel wall thickening and mesenteric stranding. The mesenteric changes may simply reflect mesenteric edema in this patient with ascites. Differential considerations include normal variant versus enteritis versus less likely inflammatory bowel disease. CT enterography may be performed for further evaluation if there is continued strong clinical concern. 3. Normal appendix. 4. Mild sigmoid diverticulosis. Trey Smith MD Chest X-Ray 07/18/175 Signed Impressions: Service Date/Time: Tuesday, July 18, 2017 04:56 - CONCLUSION: 1. No acute cardiopulmonary disease. MD Dru Childs VTE Risk Assessment Caprinrosita VTE Risk Assessment: Mod/High Risk (score >= 2) Caprini Risk Assessment Model Point Value = 1 Point Value = 2 Point Value = 3 Point Value = 5 Age 41-60 Minor surgery BMI > 25 kg/m2 Swollen legs Varicose veins or History of unexplained or recurrent spontaneous Oral contraceptives or hormone replacement Sepsis (< 1 month) Serious lung disease, including pneumonia (< 1 month) Abnormal pulmonary function Acute myocardial infarction Congestive heart failure (< 1 month) History of inflammatory bowel disease Medical patient at bed rest Age 61-74 Arthroscopic surgery Major open surgery (> 45 min) Laparoscopic surgery (> 45 min) Malignancy Confined to bed (> 72 hours) Immobilizing plaster cast Central venous access Age >= 75 History of VTE Family history of VTE Factor V Leiden Prothrombin [id number] Lupus anticoagulant Anticardiolipin antibodies Elevated serum homocysteine Heparin-induced thrombocytopenia Other congenital or acquired thrombophilia Stroke (< 1 month) Elective arthroplasty Hip, pelvis, or leg fracture Acute spinal cord injury (< 1 month) Prophylaxis Regimen Total Risk Factor Score Risk Level Prophylaxis Regimen 0-1 Low Early ambulation 2 Moderate Order ONE of the following: *Sequential Compression Device (SCD) *Heparin 5000 units SQ BID 3-4 Higher Order ONE of the following medications: *Heparin 5000 units SQ TID *Enoxaparin/Lovenox 40 mg SQ daily (WT < 150 kg, CrCl > 30 mL/min) *Enoxaparin/Lovenox 30 mg SQ daily (WT < 150 kg, CrCl > 10-29 mL/min) *Enoxaparin/Lovenox 30 mg SQ BID (WT < 150 kg, CrCl > 30 mL/min) AND/OR *Sequential Compression Device (SCD) 5 or more Highest Order ONE of the following medications: *Heparin 5000 units SQ TID (Preferred with Epidurals) *Enoxaparin/Lovenox 40 mg SQ daily (WT < 150 kg, CrCl > 30 mL/min) *Enoxaparin/Lovenox 30 mg SQ daily (WT < 150 kg, CrCl > 10-29 mL/min) *Enoxaparin/Lovenox 30 mg SQ BID (WT < 150 kg, CrCl > 30 mL/min) AND *Sequential Compression Device (SCD) Assessment and Plan Problem List: (1) Abdominal pain ICD Code: R10.9 - Unspecified abdominal pain Status: Acute Assessment and Plan Mrs. Del Cid is 66 years old, with history of hypertension, anxiety/depression, acid reflux, visual hallucinations, and fibroid tumor. Ms. Del Cid reported that she developed abdominal pain and dizziness on Monday evening (07/17/2017) and as the night went on she developed emesis. Patient stated she came by ambulance [place] [facility] [place] evaluation of her condition. Abdominal pain -Antibiotics initiated initiated in the ED Discontinued. Continue supportive care with IV fluids, stopping all NSAIDs since the patient currently is asymptomatic and feels that she is ready to go home. -No leukocytosis. -No evidence of systemic infection, UA is unremarkable, Dr. Wagner independently reviewed the CT scan sees no sign of any severe constipation. He also independently reviewed the EKG which shows an unremarkable sinus rhythm. -Viral enteritis -We'll consider discontinuing blood cultures since the patient is not impressive for any sepsis or any bacterial infection for that matter. DVT prophylaxis: -Lovenox Discussed Condition With Patient and nursing staff. Problem Qualifiers (1) Abdominal pain: Qualified Codes: R10.9 - Unspecified abdominal pain Mich Up Jr. Jul 18, 2017 10:22 Milton Wagner MD Jul 18, 2017 13:30
--- NOTE | 2017-07-18 13:46 | EKG ---
Date Performed: 07/18/2017 Time Performed: 03:37:21 PTAGE: 66 years EKG: Sinus rhythm NONSPECIFIC ST & T-WAVE ABNORMALITY BORDERLINE ECG Compared to prior tracing no significant change PREVIOUS TRACING DOCTOR: Barry Womack Interpretating Date/Time 07/18/2017 13:44:29
[2017-07-18] MEDS ORDERED: ONDA4TAB7 SL (14:28)
--- NOTE | 2017-07-18 14:29 | HHI.DCPOC ---
Discharge Care Plan Additional Problems Viral gastritis/food poisoning Goals to Promote Your Health * To prevent worsening of your condition and complications * To maintain your health at the optimal level Drink at least 8 glasses of water a day, a few vomit any further, drink more than that. Directions to Meet Your Goals Take your medications as prescribed Follow your dietary instruction Follow activity as directed Keep your appointments as scheduled Take your immunizations and boosters as scheduled If your symptoms worsen call your PCP, if no PCP go to Urgent Care Center or Emergency Room Smoking is Dangerous to Your Health. Avoid second hand smoke Call the 24-hour hour crisis hotline for domestic abuse at Milton Wagner MD Jul 18, 2017 14:29
[2017-07-18] MEDS ORDERED: ACETAMINOPHEN 500 MG CPLT PO ONE (15:00)
[2017-07-18] MEDS ORDERED: VANCOMYCIN INJ 1,650 MG in SODIUM CHLORID 0.9% 500 ML INJ 500 ML IV SCH (18:00)
== END 2017-07-18 15:59 | disposition home or self-care (01) ==
LOC: NEPC 03:16 → NEDA 06:22 → NEPHCDU 09:46
PROVIDERS: ADMIT Hospitalist; ATTEND Hospitalist
DX: N39.0 Urinary tract infection, site not specified (principal); A08.4 Viral intestinal infection, unspecified; I95.9 Hypotension, unspecified; R94.31 Abnormal electrocardiogram [ECG] [EKG]; K21.9 Gastro-esophageal reflux disease without esophagitis; Z72.0 Tobacco use
CPT/HCPCS: 71010; 74177; 80053; 81001; 82550; 82552; 83605; 83690; 83735; 84484; 85025; 85610; 85730; 86140; 87040; 93005; 96361; 96365; 96366; 96372; 96375; 97161; 99285; G0378; G8987; G8988; J1644; J1885; J2405; J3370; J7030; J7040; J7050; Q9967

== ENCOUNTER 2017-08-13 07:36 | Emergency (ER) | payer MEDICARE, OTHER ==
[~2017-08-13] VITALS: Ht 157.5 cm; Wt 102.0 kg
[~2017-08-13 07:36] MED LIST changes: -ASPI81TA81; -HYDR25TA5 PO; -LISI10TA3 PO; -LISI40TA PO; +ONDA4TAB7 SL
[2017-08-13 07:49] VITALS: BP 155/76; PULSE 93; RESP 20; TEMP 98.3; O2SAT 95
--- NOTE | 2017-08-13 07:49 | PD ---
HPI Chief Complaint: abd pain Time Seen by Provider: 07:43 Travel History International Travel<30 days: No Contact w/Intl Traveler<30days: No Traveled to known affect area: No History of Present Illness HPI c/o lower abd pain, assoc with n/v, pressure/crampy type, 5/10, over last 4 days. nonrad. no alleviating/aggravating factors pshx: btl, hysterectomy pcp used to be dr bowens, in between docs now. PFSH Past Medical History Arthritis: Yes Blood Disorders: No Anxiety: No Depression: Yes Heart Rhythm Problems: No Cancer: No Cardiovascular Problems: Yes High Cholesterol: No Chest Pain: No Congestive Heart Failure: No Diminished Hearing: No Endocrine: No GERD: Yes Genitourinary: Yes Hypertension: Yes Immune Disorder: No Musculoskeletal: No Neurologic: No Psychiatric: No Reproductive: No Respiratory: No Immunizations Current: Yes Menopausal: Yes Tubal Ligation: Yes Past Surgical History Gynecologic Surgery: Yes (HYSTERECTOMY ) Hysterectomy: Yes Social History Alcohol Use: Yes ("SOMETIMES") Tobacco Use: Yes ("SOMETIMES") Substance Use: No Allergies-Medications (Allergen,Severity, Reaction): Coded Allergies: ampicillin (Unverified Allergy, Severe, Edema, 08/13/17) Reported Meds & Prescriptions Reported Meds & Active Scripts Active Ondansetron Odt 4 Mg Tab 4 Mg SL Q8HR PRN Cipro (Ciprofloxacin HCl) 500 Mg Tab 500 Mg PO BID 10 Days Review of Systems Except as stated in HPI: all other systems reviewed are Neg Gastrointestinal: Positive: Nausea, Vomiting, Abdominal Pain Physical Exam Narrative GENERAL: SKIN: Warm and dry. HEAD: Atraumatic. Normocephalic. EYES: Pupils equal and round. No scleral icterus. No injection or drainage. ENT: No nasal bleeding or discharge. Mucous membranes pink and moist. NECK: Trachea midline. No JVD. CARDIOVASCULAR: Regular rate and rhythm. RESPIRATORY: No accessory muscle use. Clear to auscultation. Breath sounds equal bilaterally. GASTROINTESTINAL: Abdomen soft, non-tender, nondistended. MUSCULOSKELETAL: Extremities without clubbing, cyanosis, or edema. No obvious deformities. NEUROLOGICAL: Awake and alert. No obvious cranial nerve deficits. Motor grossly within normal limits. Five out of 5 muscle strength in the arms and legs. Normal speech. PSYCHIATRIC: Appropriate mood and affect; insight and judgment normal. Data Data Last Documented VS Vital Signs Date Time Temp Pulse Resp B/P (MAP) Pulse Ox O2 Delivery O2 Flow Rate FiO2 08/13/17 08:22 97 Room Air 08/13/17 07:49 98.3 93 20 Orders Orders Complete Blood Count With Diff (08/13/17 07:53) Comprehensive Metabolic Panel (08/13/17 07:53) Lipase (08/13/17 07:53) Urinalysis - C+S If Indicated (08/13/17 07:53) Ct Abd/Pel W Iv Contrast(Rout) (08/13/17 07:53) Iv Access Insert/Monitor (08/13/17 07:53) Ecg Monitoring (08/13/17 07:53) Oximetry (08/13/17 07:53) NPO (08/13/17 07:53) Morphine Inj (Morphine Inj) (08/13/17 08:00) Ondansetron Inj (Zofran Inj) (08/13/17 08:00) Sodium Chlor 0.9% 1000 Ml Inj (Ns 1000 M (08/13/17 07:53) Iohexol 350 Inj (Omnipaque 350 Inj) (08/13/17 09:01) Labs Laboratory Tests Test 08/13/17 08:00 White Blood Count 9.2 TH/MM3 Red Blood Count 4.59 MIL/MM3 Hemoglobin 12.9 GM/DL Hematocrit 38.3 % Mean Corpuscular Volume 83.5 FL Mean Corpuscular Hemoglobin 28.2 PG Mean Corpuscular Hemoglobin Concent 33.7 % Red Cell Distribution Width 15.4 % Platelet Count 186 TH/MM3 Mean Platelet Volume 9.2 FL Neutrophils (%) (Auto) 83.2 % Lymphocytes (%) (Auto) 11.7 % Monocytes (%) (Auto) 4.2 % Eosinophils (%) (Auto) 0.7 % Basophils (%) (Auto) 0.2 % Neutrophils # (Auto) 7.7 TH/MM3 Lymphocytes # (Auto) 1.1 TH/MM3 Monocytes # (Auto) 0.4 TH/MM3 Eosinophils # (Auto) 0.1 TH/MM3 Basophils # (Auto) 0.0 TH/MM3 CBC Comment DIFF FINAL Differential Comment Blood Urea Nitrogen 10 MG/DL Creatinine 0.87 MG/DL Random Glucose 108 MG/DL Total Protein 7.6 GM/DL Albumin 3.5 GM/DL Calcium Level 8.7 MG/DL Alkaline Phosphatase 54 U/L Aspartate Amino Transf (AST/SGOT) 10 U/L Alanine Aminotransferase (ALT/SGPT) 11 U/L Total Bilirubin 0.6 MG/DL Sodium Level 140 MEQ/L Potassium Level 3.6 MEQ/L Chloride Level 105 MEQ/L Carbon Dioxide Level 28.0 MEQ/L Anion Gap 7 MEQ/L Estimat Glomerular Filtration Rate 79 ML/MIN Lipase 107 U/L [facility] Medical Decision Making Medical Screen Exam Complete: Yes Emergency Medical Condition: Yes Medical Record Reviewed: Yes Differential Diagnosis colitis v divertic v appy Narrative Course CT SHOWED E/O CIRRHOSIS IMPROVING, NO COLITIS/DIVERTICULITIS/ OR ABSCESS, ALSO NO SBO OR E/O PERFORATION Diagnosis Primary Impression: Nonspecific abdominal pain Referrals: [facility] Patient Instructions: Abdominal Pain (ED), General Instructions Scripts Ondansetron Odt (Zofran Odt) 4 Mg Tab 4 MG SL Q6HR Y for Nausea/Vomiting, #20 TAB 0 Refills Prov: Geovanny Wu MD 08/13/17 Tramadol (Ultram) 50 Mg Tab 50 MG PO Q4H Y for PAIN, #20 TAB 0 Refills Prov: Geovanny Wu MD 08/13/17 Disposition: 01 DISCHARGE HOME Condition: Stable Geovanny Wu MD Aug 13, 2017 07:49
[2017-08-13] MEDS ORDERED: SODIUM CHLOR 0.9% 1000 ML INJ 1,000 ML IV SCH (07:53)
[2017-08-13] MEDS ORDERED: MORPHINE SULFATE 4 MG/ML INJ IV PUSH ONE (08:00)
[2017-08-13] MEDS ORDERED: ONDANSETRON HCL 4 MG/2 ML VIAL IVP ONE (08:00)
[2017-08-13 08:21] LABS: AUTOMATED NEUTROPHIL # 7.7 TH/MM3 (1.8-7.7); BASOPHIL % 0.2 % (0.0-2.0); EOSINOPHIL # 0.1 TH/MM3 (0-0.4); EOSINOPHIL % 0.7 % (0.0-4.0); HEMATOCRIT 38.3 % (35.0-46.0); HEMO FLAGS DIFF FINAL; LYMPH % 11.7 % (9.0-44.0); LYMPHOCYTE # 1.1 TH/MM3 (1.0-4.8); MEAN CELL VOLUME 83.5 FL (80.0-100.0); MEAN CORPUSCULAR HEMOGLOBIN 28.2 PG (27.0-34.0); MEAN CORPUSCULAR HGB CONC 33.7 % (32.0-36.0); MONO % 4.2 % (0.0-8.0); NEUT % 83.2 % (16.0-70.0); PLATELET COUNT 186 TH/MM3 (150-450); RED BLOOD COUNT 4.59 MIL/MM3 (4.00-5.30); RED CELL DISTRIBUTION WIDTH 15.4 % (11.6-17.2); WHITE BLOOD COUNT 9.2 TH/MM3 (4.0-11.0)
[2017-08-13 08:22] VITALS: O2SAT 97
[2017-08-13 08:36] LABS: ALT (GPT) 11 U/L (10-53); ANION GAP 7 MEQ/L (5-15); AST (GOT) 10 U/L (15-37); BLOOD UREA NITROGEN 10 MG/DL (7-18); CHLORIDE 105 MEQ/L (98-107); GLOMERULAR FILTRATION RATE 79 ML/MIN (>89); POTASSIUM 3.6 MEQ/L (3.5-5.1); SODIUM (NA) 140 MEQ/L (136-145)
[2017-08-13 08:39] LABS: ALKALINE PHOSPHATASE 54 U/L (45-117); TOTAL BILIRUBIN ADULT 0.6 MG/DL (0.2-1.0)
[2017-08-13 09:00] VITALS: BP 127/67; PULSE 88; RESP 18; O2SAT 97
[2017-08-13] MEDS ORDERED: IOHEXOL 350 MG/ML 10 ML VIAL (for RAD DIAG) IVCONTRAST ONE (09:01)
--- NOTE | 2017-08-13 09:45 | RADRPT ---
EXAM DATE/TIME: 08/13/2017 08:56 [facility] COMPARISON: CHEST SINGLE AP, July 18, 2017, 4:56. CT ABDOMEN & PELVIS W CONTRAST, S eptember 2016, 5:05. INDICATIONS : Abdominal pain. IV CONTRAST: 96 cc IV ORAL CONTRAST: No oral contrast ingested. RADIATION DOSE: 16.83 CTDIvol (mGy) MEDICAL HISTORY : Cardiovascular disease. Hypertension. SURGICAL HISTORY : Hysterectomy. Tubal ligation. ENCOUNTER: Initial ACUITY: 4 - 6 days PAIN SCALE: 6/10 LOCATION: lower quadrant abdominal TECHNIQUE: Volumetric scanning of the abdomen and pelvis was performed. Using automated exposure control and adjustment of the mA and/or kV according to patient size, radiation dose was kept as low as reasonably achievable to obtain optimal diagnostic quality images. DICOM format image data is av ailable electronically for review and comparison. FINDINGS: LOWER LUNGS: The lung bases demonstrate diffuse hazy increased groundglass opacity with a single subpleural parenchymal cysts identified within the right lower lobe. This is greater than expected fo r dependent atelectasis and may represent a process such as hypersensitivity pneumonitis. LIVER: The liver appears mildly not jugular in contour without other secondary findings of cirrho sis. No evidence of mass or biliary obstruction. The gallbladder is unremarkable. SPLEEN: Normal size without lesion. PANCREAS: Within normal limits. KIDNEYS: Normal in size and shape. There is no mass, stone or hydronephrosis. ADRENAL GLANDS: Within normal limits. VASCULAR: There is no aortic aneurysm. BOWEL/MESENTERY: The stomach, small bowel, and colon demonstrate no acute abnormality. There is no free intraperitoneal air and there is only trace free fluid seen within right paracolic gutter. Th is is improved as compared to prior exam. ABDOMINAL WALL: Within normal limits. RETROPERITONEUM: There is no lymphadenopathy. BLADDER: No wall thickening or mass. REPRODUCTIVE: Surgical absence. INGUINAL: There is no lymphadenopathy or hernia. MUSCULOSKELETAL: Within normal limits for patient age. CONCLUSION: 1. Improved ascites. No evidence of current inflammatory process within the abdomen or pelvis. 2. The liver appears mildly nodular contour without additional signs of cirrhosis. Correlate with the patient's prior history for early cirrhosis. 3. Diffuse groundglass opacity of the lungs, greater than expected for dependent atelectasis. This ca n be seen in the setting of hypersensitivity pneumonitis. Jennifer Crowell MD on August 13, 2017 at 9:37 Board Certified Radiologist. This report was verified electronically.
[2017-08-13 10:30] VITALS: BP 170/82; PULSE 76; RESP 18; O2SAT 97
[2017-08-13] MEDS ORDERED: ZOFR4TAB3 SL (11:40)
[2017-08-13] MEDS ORDERED: ULTR50TA5 PO (11:40)
[2017-08-13 12:20] VITALS: BP 104/70; PULSE 70; RESP 18; O2SAT 97
[2017-08-13 12:32] LABS: BACTERIA, URINE OCC /hpf; BLOOD, URINE TRACE (NEG); COMMENT (UR) CULT NOT INDICATED; CULTURE IF INDICATED CULT NOT INDICATED; GLUCOSE,URINE NEG (NEG); KETONE, URINE NEG (NEG); MUCUS URINE FEW /lpf (OCC); NITRITE,URINE NEG (NEG); PH, URINE 6.5 (5.0-8.5); SQUAMOUS EPITHELIAL CELL URINE 3 /hpf (0-5); URINE COLOR YELLOW (YELLW/STRAW)
== END 2017-08-13 13:20 | disposition home or self-care (01) ==
LOC: NEPE 07:36
DX: R10.30 Lower abdominal pain, unspecified (principal); R11.2 Nausea with vomiting, unspecified
CPT/HCPCS: 74177; 80053; 81001; 83690; 85025; 96361; 96374; 96375; 99285; J2270; J2405; J7030; Q9967